=== PATIENT | female | born 1975 | race Caucasian/White ===

== ENCOUNTER 2022-08-07 17:32 | Emergency (ER) | payer MEDICAID, SELFPAY ==
[2022-08-07 17:35] VITALS: BP 162/91; PULSE 110; RESP 19; TEMP 36.5; O2SAT 98; BMI 17.6
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
--- NOTE | 2022-08-07 17:56 | PC.NURSE ---
rad notified of xray orders,
[2022-08-07 18:41] VITALS: BP 132/74; PULSE 93; RESP 17; TEMP 36.5; O2SAT 98
== END 2022-08-07 18:41 | disposition home or self-care (01) ==
PROVIDERS: Emergency Provider Emergency Medicine; PCP Family Medicine
DX: S46.911A Strain of unspecified muscle, fascia and tendon at shoulder and upper arm level, right arm, initial encounter (principal); M79.674 Pain in right toe(s); Y04.8XXA Assault by other bodily force, initial encounter; F17.200 Nicotine dependence, unspecified, uncomplicated
CPT/HCPCS: 71046; 73030; 73660; 99284